=== PATIENT | female | born 1990 | race Caucasian/White ===

== ENCOUNTER 2022-07-02 16:09 | Emergency (ER) | payer OTHER ==
[~2022-07-02] VITALS: Ht 162.6 cm; Wt 57.4 kg
[2022-07-02 16:25] VITALS: BP 107/65
[2022-07-02] MEDS ORDERED: BACITRACIN OINT 500 UNITS/GM PKT TP ONE (16:45)
[2022-07-02] MEDS ORDERED: AMOXIL/CLAVULANATE 875/125 MG 1 TAB PO ONE (16:45)
--- NOTE | 2022-07-02 16:57 | NUR ---
PT AMB TO BED 12
--- NOTE | 2022-07-02 16:59 | NUR ---
31/F WALKED IN C/O LEFT THIGH PAIN AND ABRASION S/P HUMAN BITE 3 DAYS AGO. [facility] [place] [facility] REPORTED. AAO4, AMBULATORY, VITALS STABLE.
--- NOTE | 2022-07-02 17:21 | NUR ---
LEFT THIGH IRRIGATED WITH NS AND DRESSED WITH NONADHESIVE GAUZE AND ATBX OINTMENT
[2022-07-02] MEDS ORDERED: IBUP-2213 PO (17:23)
[2022-07-02] MEDS ORDERED: BACI28.43 TP (17:23)
[2022-07-02] MEDS ORDERED: AMOX-1230 PO (17:23)
== END 2022-07-02 17:30 | disposition home or self-care (01) ==
LOC: MED 16:09
DX: S71.152A Open bite, left thigh, initial encounter (principal); Z79.899 Other long term (current) drug therapy; Y04.1XXA Assault by human bite, initial encounter; Y93.89 Activity, other specified; Y92.89 Other specified places as the place of occurrence of the external cause; Y99.8 Other external cause status
CPT/HCPCS: 90471; 90715; 99283